=== PATIENT | female | born 1945 | race Asian ===

== ENCOUNTER 2018-09-04 06:33 | Day surgery (SDC) | payer OTHER ==
[2018-09-04] MEDS ORDERED: SIMETHICONE 40 MG/0.6 ML ML ONE (07:27)
[2018-09-04] MEDS: fentaNYL CITRATE/PF 100 MCG/2 ML AMP ONE ×2 (08:28→08:36)
[2018-09-04] MEDS: MIDAZOLAM HCL 5 MG/5 ML VIAL ONE ×2 (08:28→08:36)
[2018-09-04 11:54] VITALS: BP_SYST 128
== END 2018-09-04 10:00 | disposition home or self-care (01) ==
LOC: SMU 06:33 → SDS 06:33
PROVIDERS: ATTEND Surgery
DX: K57.30 Diverticulosis of large intestine without perforation or abscess without bleeding (principal); K62.5 Hemorrhage of anus and rectum; K64.4 Residual hemorrhoidal skin tags; K64.8 Other hemorrhoids
CPT/HCPCS: 45378; J2250; J3010

== ENCOUNTER 2019-01-18 15:05 | Emergency (ER) | payer OTHER ==
[~2019-01-18] VITALS: Ht 149.9 cm; Wt 47.6 kg
[2019-01-18 15:30] VITALS: BP_SYST 151
--- NOTE | 2019-01-18 16:00 | NUR ---
Patient to ER bed 07 for evaluation. Side rails up.
--- NOTE | 2019-01-18 16:04 | NUR ---
ER at bedside examining patient.
--- NOTE | 2019-01-18 16:05 | NUR ---
Pt AAOx4 ambulated into ED c/o pain to posterior head s/p trip and fall while dancing at [employer] prior to arrival. Pt reports KO for "one second." Denies n/v/d. No medications taken prior to arrival. No other injuries/complaints per pt/noted. Will continue to monitor.
[2019-01-18] MEDS ORDERED: ACETAMINOPHEN 325 MG TABLET PO ONE (16:15)
--- NOTE | 2019-01-18 16:20 | NUR ---
Medication administered. Pt tolerated well. No adverse.
--- NOTE | 2019-01-18 16:52 | NUR ---
Patient given written and verbal discharge instructions and verbalizes understanding. ER MD Otoole discussed with patient the results and treatment provided. Patient in stable condition. ID arm band removed. No Rx given. Patient educated on pain management and to follow up with PMD. Pain Scale 0. Opportunity for questions provided and answered. Medication side effect fact sheet provided.
[2019-01-18 16:53] VITALS: BP_SYST 143
== END 2019-01-18 16:52 | disposition home or self-care (01) ==
LOC: SED 15:05
DX: S00.03XA Contusion of scalp, initial encounter (principal); W18.39XA Other fall on same level, initial encounter; Y93.89 Activity, other specified; Y92.89 Other specified places as the place of occurrence of the external cause; Y99.8 Other external cause status
CPT/HCPCS: 70450-TC; 99284